=== PATIENT | male | born 1965 | race Caucasian/White ===

== ENCOUNTER 2023-06-23 11:19 | Outpatient (REF) | payer BC, SELFPAY ==
--- NOTE | ~2023-06-23 | US_ITS ---
EXAMINATION: US RETROPERITONEAL COMPLETE (RENAL) CLINICAL INFORMATION: Hematuria. Back pain. COMPARISON: None available. TECHNIQUE: Real-time imaging of the kidneys and bladder. FINDINGS: RIGHT KIDNEY: 9.7 x 6.1 x 5.5 cm (SAG x AP x TRV). The kidney is normal in size, contour, and echogenicity. Renal cortical thickness is normal. No calculi. No hydronephrosis. Lower pole exophytic cyst measures 6 x 4 x 5 mm. No further imaging follow-up is needed. LEFT KIDNEY: 9.0 x 6.0 x 5.2 cm (SAG x AP x TRV). The kidney is normal in size, contour, and echogenicity. Renal cortical thickness is normal. No calculi or focal parenchymal lesions. No hydronephrosis. BLADDER: Well distended and normal. Bilateral ureteral jets are demonstrated. Prevoid bladder volume is 339 mL. Postvoid bladder volume is 9 mL. Prostate gland volume measures 11 mL. US/US retroperitoneal comp IMPRESSION: No acute abnormality.
== END 2023-06-23 11:20 | disposition home or self-care (01) ==
LOC: HO.US 11:19
PROVIDERS: PCP Internal Medicine Medical Oncology; Visit Provider Internal Medicine Medical Oncology
DX: R31.9 Hematuria, unspecified (principal); R10.2 Pelvic and perineal pain; N50.819 Testicular pain, unspecified
CPT/HCPCS: 76770

== ENCOUNTER 2023-07-14 15:29 | Outpatient (REF) | payer BC, SELFPAY ==
--- NOTE | ~2023-07-14 | US_ITS ---
EXAMINATION: US SCROTUM CLINICAL INFORMATION: Testicular pain. COMPARISON: None available. TECHNIQUE: A sonogram of the scrotum was performed assessing wallis-scale appearance and color Doppler flow. Spectral Doppler analysis of the arterial and venous flow were performed in the testes bilaterally. FINDINGS: RIGHT: Right testicle measures 4.2 x 2.4 x 3.3 cm, volume 17.5 mL. No focal testicular parenchymal lesions are visualized. Spectral Doppler analysis of the arterial and venous flow is normal in the right testis. Right epididymal head is normal in size. Right epididymal cyst measuring up to 5 mm. No right varicocele is seen. Right epididymal Doppler flow is normal. Small right-sided hydrocele. LEFT: Left testicle measures 4.5 x 2.4 x 3.0 cm, volume 16.5 mL. No focal testicular parenchymal lesions are visualized. Spectral Doppler analysis of the arterial and venous flow is normal in the left testis. Left epididymal head is normal in size. Left epididymal cyst measuring up to 2 mm. No left hydrocele or varicocele is seen. Left epididymal Doppler flow is normal. US/US scrotum IMPRESSION: 1. Bilateral testicular vascular flow identified. 2. Small bilateral epididymal cysts. 3. Small right-sided hydrocele.
== END 2023-07-14 15:30 | disposition home or self-care (01) ==
LOC: HO.US 15:29
PROVIDERS: PCP Internal Medicine Medical Oncology; Visit Provider Internal Medicine Medical Oncology
DX: N50.819 Testicular pain, unspecified (principal)
CPT/HCPCS: 76870